=== PATIENT | male | born 1980 | race African-American/Black ===

== ENCOUNTER 2021-01-19 01:01 | Emergency (ER) | payer SELFPAY ==
[~2021-01-19] VITALS: Ht 180.3 cm; Wt 65.0 kg
[2021-01-19] MEDS ORDERED: HYDROCODONE/ACETAMINOPHEN 5/325MG TABLET PO ONE (01:30)
[2021-01-19] MEDS ORDERED: IBUPROFEN 600MG TABLET PO ONE (01:30)
[2021-01-19 01:45] LABS: BASOPHILS % 0.4 % (0.0-2.0); EOSINOPHILS % 0.2 % (0.0-5.0); HEMATOCRIT. 40.1 % (42.0-52.0); HEMOGLOBIN. 13.8 g/dL (14.0-18.0); LYMPHOCYTES % 8.7 % (20.0-50.0); MEAN CORPUSCULAR HEMOGLOBIN 31.3 pg (28.0-32.0); MEAN CORPUSCULAR VOLUME 90.5 fL (80.0-94.0); MEAN PLATELET VOLUME 9.4 fl (7.4-10.4); MONOCYTES % 7.8 % (2.0-8.0); NEUTROPHILS % 82.9 % (40.0-76.0); PLATELET 250 x1000/uL (130-400); RED BLOOD CELL COUNT 4.43 mill/uL (4.7-6.1); RED CELL DISTRIBUTION WIDTH 12.3 % (11.6-14.6)
[2021-01-19 01:53] LABS: CHLORIDE 106 mEq/L (98-107)
[2021-01-19 03:11] VITALS: BP 113/69
== END 2021-01-19 03:13 ==
LOC: ER 01:01
DX: R07.89 Other chest pain (principal); G89.29 Other chronic pain; M54.89 Other dorsalgia; J45.909 Unspecified asthma, uncomplicated; Z87.828 Personal history of other (healed) physical injury and trauma; Z95.0 Presence of cardiac pacemaker
CPT/HCPCS: 36415; 71045; 80053; 84484; 85025; 99284

== ENCOUNTER 2025-03-24 13:22 | Emergency (ER) | payer OTHER ==
[~2025-03-24] VITALS: Ht 180.3 cm; Wt 82.0 kg
[2025-03-24 13:29] VITALS: O2SAT 99
[2025-03-24 15:32] LABS: BASOPHILS % 0.6 % (0.0-2.0); EOSINOPHILS % 0.6 % (0.0-5.0); HEMATOCRIT. 39.2 % (42.0-52.0); HEMOGLOBIN. 13.3 g/dL (14.0-18.0); LYMPHOCYTES % 13.7 % (20.0-50.0); MEAN PLATELET VOLUME 9.4 fl (7.4-10.4); MONOCYTES % 8.9 % (2.0-8.0); NEUTROPHILS % 76.2 % (40.0-76.0); PLATELET 242 x1000/uL (130-400); RED BLOOD CELL COUNT 4.30 mill/uL (4.7-6.1); RED CELL DISTRIBUTION WIDTH 12.5 % (11.6-14.6)
[2025-03-24 15:36] LABS: CREATININE 1.0 mg/dL (0.6-1.3); UREA NITROGEN BLOOD 9 mg/dL (9-23)
[2025-03-24 15:37] LABS: ASPARTATE AMINOTRANSFERASE 31 IU/L (<34); PROTEIN TOTAL 7.0 g/dL (6.0-8.3); TROPONIN I HIGH SENSITIVITY < 4 ng/L (3.0-53)
[2025-03-24 15:38] LABS: BILIRUBIN DIRECT 0.2 mg/dL (<=3.0); BILIRUBIN TOTAL 0.7 mg/dL (0.1-1.0)
[2025-03-24 15:54] LABS: INR 1.0
[2025-03-24 17:29] LABS: TROPONIN I HIGH SENSITIVITY 4 ng/L (3.0-53)
[2025-03-24 17:55] VITALS: BP 137/81; PULSE 63; RESP 18; TEMP 36.8; O2SAT 99
== END 2025-03-24 17:55 ==
LOC: ER 13:22
DX: R07.2 Precordial pain (principal); J45.909 Unspecified asthma, uncomplicated; I10 Essential (primary) hypertension; R06.02 Shortness of breath; Z72.0 Tobacco use; Z95.0 Presence of cardiac pacemaker
CPT/HCPCS: 36415; 71045; 80048; 80076; 83735; 83880; 84484; 85025; 93005; 99285; 99406